=== PATIENT | male | born 1955 | race Caucasian/White ===

== ENCOUNTER 2017-07-22 20:28 | Emergency (ER) | payer MEDICAID, OTHER ==
[~2017-07-22] VITALS: Ht 177.8 cm; Wt 66.8 kg
[2017-07-22 20:38] VITALS: Ht 177.8 cm; Wt 66.8 kg
[2017-07-22] MEDS ORDERED: [UNRECOGNIZED DRUG - REMARK] (22:01)
--- NOTE | 2017-07-22 22:07 | ERD ---
ER Documentation Chief Complaint Chief Complaint fall last thursday; R 5th digit pain/swelling and R knee pain HPI 61-year-old male presents here in emergency department for complaints of right fifth finger pain and right knee pain after falling while walking the dog 3 days ago. Patient fell landed on the right fifth finger and the right knee. Patient describes the pain as throbbing pain, succession scale, not better or worse with anything. Patient denies any deformity. Patient has history of chronic end-stage renal disease, currently on dialysis 3 times a week. Patient took some Tylenol for pain with much relief. Patient denies any deformity. Patient is an abrasion on the right knee. ROS All systems reviewed and are negative except as per history of present illness. Medications Home Meds Reported Medications [multiple renal meds] Unknown Strength No Conflict Check 07/22/17 Allergies Allergies: Coded Allergies: No Known Allergy (Unverified , 07/22/17) PMhx/Soc Medical and Surgical Hx: pt denies Medical Hx, pt denies Surgical Hx FmHx Family History: No coronary disease, No diabetes, No other Physical Exam Vitals Vital Signs Date Time Temp Pulse Resp B/P Pulse Ox O2 Delivery O2 Flow Rate FiO2 07/22/17 20:38 98.5 72 20 180/78 98 Physical Exam GENERAL: The patient is well developed and appropriate for usual state of health, in no apparent distress. CHEST: Clear to auscultation bilaterally. There are no rales, wheezes or rhonchi. HEART: Regular rate and rhythm. No murmurs, clicks, rubs or gallops. No S3 or S4. ABDOMEN: Soft, nontender and nondistended. Good bowel sounds. No rebound or guarding. No gross peritonitis. No gross organomegaly or masses. No Chen sign or McBurney point tenderness. BACK: No midline or flank tenderness. EXTREMITIES: Tenderness on palpation on the right knee, noted abrasion, able to do full range of motion without any restriction. Tenderness on palpation on the right fifth finger, no deformity noted, mild swelling noted. Able to do full range of motion without any restriction. Equal pulses bilaterally. There is no peripheral clubbing, cyanosis or edema. No focal swelling or erythema. Full range of motion. Grossly neurovascularly intact. NEURO: Alert and oriented. Cranial nerves 2-12 intact. Motor strength in all 4 extremities with 5/5 strength. Sensation grossly intact. Normal speech and gait. SKIN: There is no apparent rash or petechia. The skin is warm and dry. HEMATOLOGIC AND LYMPHATIC: There is no evidence of excessive bruising or lymphedema. No gross cervical, axillary, or inguinal lymphadenopathy. Results 24 hrs PROCEDURE: XR Hand. CLINICAL INDICATION: Fifth finger pain following fall. TECHNIQUE: AP oblique and lateral views of the right hand were obtained. COMPARISON: No prior studies are available for comparison. FINDINGS: Minimally displaced and slightly comminuted fracture deformity of the proximal metadiaphysis of the fifth proximal phalanx. Soft tissue swelling of the fifth finger. Chronic fracture deformity of the fifth metacarpal bone. The remaining bones are normal mineralization without cortical destruction. The joint spaces are well maintained. The carpal bones are intact and normally aligned. No soft tissue abnormality. IMPRESSION: 1. Minimally displaced fracture of the proximal metadiaphysis of the proximal fifth phalanx with marked surrounding soft tissue swelling of the fifth finger. 2. Chronic fracture deformity of the fifth metacarpal bone. RPTAT:AAJJ Physician [facility] Date Time Electronically viewed and signed by Physician Duke on 07/22/2017 22:27 KEYUR/ CC: JONATHAN VARGAS NP PROCEDURE: knee x-ray CLINICAL INDICATION: Knee pain. TECHNIQUE: AP, lateral and oblique views of the right knee were obtained. COMPARISON: None FINDINGS: No evidence of fracture or dislocation. The medial, lateral, as well as patellofemoral knee joint compartments are well maintained. Small to moderate suprapatellar joint effusion soft tissue swelling of the anterior suprapatellar soft tissues. No other soft tissue or osseous abnormality. IMPRESSION: 1. No fracture or dislocation. 2. Small moderate suprapatellar joint effusion and anterior suprapatellar soft tissue swelling. 3. No other soft tissue abnormality. RPTAT:AAJJ Physician [facility] Date Time Electronically viewed and signed by Physician Duke on 07/22/2017 22:29 KEYUR/ CC: JONATHAN VARGAS [facility] NUR[facility] Procedures/MDM Medical Decision Making: Patient's pain is most likely consistent with a finger fracture and right knee contusion with suprapatellar effusion noted.. There is no suspicion for neurovascular compromise. Patient has intact sensation and circulation of the affected extremity. There is low suspicion for septic arthritis. Patient does not have any fever. Radiology exams of the affected area does not show any dislocation. Disposition: Home. Patient is given prescription for tramadol for severe pain. Patient was advised to elevate the affected area and apply ice on affected area. Patient was advised that if symptoms are worse, numbness, tingling, high fever, unable to move joint, worsening symptoms, to return to emergency department immediately. Otherwise, patient is advised to follow up with the primary care doctor in 5-7 days for reevaluation of symptoms. Disclaimer: Inadvertent spelling and grammatical errors are likely due to EHR/ dictation software use and do not reflect on the overall quality of patient care. Also, please note that the electronic time recorded on this note does not necessarily reflect the actual time of the patient encounter. Departure Diagnosis: Primary Impression: Finger fracture, right Encounter type: initial encounter Finger: little finger Fracture type: closed Phalanx: unspecified phalanx Fracture alignment: displaced Qualified Code: S62.606A - Closed displaced fracture of phalanx of right little finger, unspecified phalanx, initial encounter Additional Impression: Knee contusion Encounter type: initial encounter Laterality: right Qualified Code: S80.01XA - Contusion of right knee, initial encounter Condition: Stable Patient Instructions: Fracture, Finger (Closed), Knee Pain, Uncertain Cause Additional Instructions: Patient is given prescription for tramadol for severe pain. Patient was advised to elevate the affected area and apply ice on affected area. Patient was advised that if symptoms are worse, numbness, tingling, high fever, unable to move joint, worsening symptoms, to return to emergency department immediately. Otherwise, patient is advised to follow up with the primary care doctor in 5-7 days for reevaluation of symptoms. JONATHAN VARGAS NP Jul 22, 2017 22:07
--- NOTE | 2017-07-22 22:27 | RADRPT ---
PROCEDURE: XR Hand. CLINICAL INDICATION: Fifth finger pain following fall. TECHNIQUE: AP oblique and lateral views of the right hand were obtained. COMPARISON: No prior studies are available for comparison. FINDINGS: Minimally displaced and slightly comminuted fracture deformity of the proximal metadiaphysis of the fifth proximal phalanx. Soft tissue swelling of the fifth finger. Chronic fracture deformity of the fifth metacarpal bone. The remaining bones are normal mineralization without cortical destruction. The joint spaces are well maintained. The carpal bones are intact and normally aligned. No soft ti ssue abnormality. IMPRESSION: 1. Minimally displaced fracture of the proximal metadiaphysis of the proximal fifth phalanx with ma rked surrounding soft tissue swelling of the fifth finger. 2. Chronic fracture deformity of the fifth metacarpal bone. RPTAT:AAJJ Physician [facility] Date Time Electronically viewed and signed by Physician Duke on 07/22/2017 22:27 KEYUR/
--- NOTE | 2017-07-22 22:29 | RADRPT ---
PROCEDURE: knee x-ray CLINICAL INDICATION: Knee pain. TECHNIQUE: AP, lateral and oblique views of the right knee were obtained. COMPARISON: None FINDINGS: No evidence of fracture or dislocation. The medial, lateral, as well as patellofemoral knee joint compartments are well maintained. Small to moderate suprapatellar joint effusion soft tissue swelling of the anterior suprapatellar so ft tissues. No other soft tissue or osseous abnormality. IMPRESSION: 1. No fracture or dislocation. 2. Small moderate suprapatellar joint effusion and anterior suprapatellar soft tissue swelling. 3. No other soft tissue abnormality. RPTAT:AAJJ Physician [facility] Date Time Electronically viewed and signed by Physician Duke on 07/22/2017 22:29 KEYUR/
[2017-07-22] MEDS ORDERED: TRAM50TA2 PO (22:42)
== END 2017-07-22 22:57 | disposition home or self-care (01) ==
LOC: FTE 20:28
DX: S62.616A Displaced fracture of proximal phalanx of right little finger, initial encounter for closed fracture (principal); S80.01XA Contusion of right knee, initial encounter; W18.39XA Other fall on same level, initial encounter; Y92.9 Unspecified place or not applicable
CPT/HCPCS: 29130; 73130; 73562; Z7502